=== PATIENT | female | born 1945 | race Caucasian/White ===

== ENCOUNTER 2022-04-08 06:36 | Inpatient (IN) | payer MEDICARE, BC ==
[~2022-04-08] VITALS: Ht 165.1 cm; Wt 80.0 kg
[2022-04-08 08:45] LABS: HEMATOCRIT 34.8 % (35.0-45.0); MONOCYTES # (AUTO) 0.5 X10'3 (0-0.9); WHITE BLOOD COUNT 5.9 X10'3 (4.5-11.0)
[2022-04-08 08:46] LABS: BASOPHILS # (AUTO) 0.1 X10'3 (0-0.2); BASOPHILS % (AUTO) 0.9 % (0-1); EOSINOPHILS # (AUTO) 0.1 X10'3 (0-0.9); EOSINOPHILS % (AUTO) 0.9 % (0-6); HEMOGLOBIN 12.4 g/dl (12.0-16.0); LYMPHOCYTES # (AUTO) 0.5 X10'3 (1.1-4.8); LYMPHOCYTES % (AUTO) 9.1 % (21-51); MEAN CORPUSCULAR HEMOGLOBIN 34.8 PG (27.0-31.0); MEAN CORPUSCULAR HGB CONC 35.5 g/dL (33.0-36.5); MEAN PLATELET VOLUME 10.5 FL (7.4-10.4); MONOCYTES % (AUTO) 8.8 % (2-12); NEUTROPHILS # (AUTO) 4.7 X10'3 (1.8-7.7); NEUTROPHILS % (AUTO) 80.3 % (42-75); PLATELET COUNT 174 X10'3 (140-440); RED BLOOD COUNT 3.55 X10'6 (4.20-5.60); RED CELL DISTRIBUTION WIDTH 17.3 % (11.5-14.5)
--- NOTE | 2022-04-08 08:53 | NUR ---
PATIENT UP TO BATHROOM AT THIS TIME TO PROVIDE UA SAMPLE. PATIENT STATES SHE FEELS "WOBBLY", MINIMAL ASSISTANCE NEEDED TO BATHROOM.
[2022-04-08 08:58] LABS: ALANINE AMINOTRANSFERASE 153 U/L (12-78); ALBUMIN 2.8 G/DL (3.4-5.0); ALKALINE PHOSPHATASE 352 IU/L (46-116); ANION GAP 13 (8-16); BILIRUBIN,TOTAL 18.5 MG/DL (0.1-1.0); BLOOD UREA NITROGEN 21 MG/DL (7-18); CALCIUM 8.9 MG/DL (8.5-10.1); CHLORIDE 108 MMOL/L (99-107); LIPASE 326 U/L (73-393); SODIUM 142 MMOL/L (135-145); TOTAL CARBON DIOXIDE 21.3 MMOL/L (24-32)
[2022-04-08 09:03] LABS: ALBUMIN/GLOBULIN RATIO 0.8 (1.1-1.5); ASPARTATE AMINO TRANSFERASE 98 U/L (10-37); BUN/CREATININE RATIO 21.6 (6.6-38.0); CREATININE 0.97 MG/DL (0.40-0.90); GLUCOSE 104 MG/DL (70-104); POTASSIUM 3.3 MMOL/L (3.5-5.1); TOTAL PROTEIN 6.5 G/DL (6.4-8.2); eGFR 56 ML/MIN
[2022-04-08 09:05] LABS: ETHANOL < 0.010 GM/DL (0.0-0.010)
[2022-04-08 09:18] LABS: COLOR,URINE BROWN (Yellow)
[2022-04-08 09:19] LABS: CLARITY,URINE SLIGHTLY CLOUDY (Clear); UA COLLECTION TYPE CLN CATCH MIDSTREAM
[2022-04-08 09:21] LABS: RBC,URINE 0-2 /HPF (0-2); WBC,URINE 0-4 /HPF (0-4)
[2022-04-08 09:23] LABS: BACTERIA,URINE FEW /HPF (Neg); CAL OXALATE CRYSTALS FEW /HPF (NEGATIVE); FINE GRANULAR CAST 0-3 /LPF (NEGATIVE); HYALINE CASTS 0-3 /LPF (NEGATIVE); MUCUS STRANDS FEW /LPF (Neg); RENAL CELLS, URINE FEW /HPF; SQUAMOUS EPITHELIAL CELL,UR FEW /LPF (FEW)
[2022-04-08 09:26] LABS: LARGE PLATELETS FEW; PLATELET ESTIMATE NORMAL; POLYCHROMASIA 1+
[2022-04-08 09:27] LABS: ANISOCYTOSIS 1+; TARGET CELLS 2+
[2022-04-08] MEDS ORDERED: acetaminophen 325mg tablet PO PRN ×2 (10:20)
[2022-04-08] MEDS ORDERED: mag hydrox/Alum hydrox/simeth 30ml oral suspension PO PRN (10:20)
[2022-04-08] MEDS ORDERED: morphine 2 MG/ML inj. syringe IV PRN (10:20)
[2022-04-08] MEDS ORDERED: magnesium 2GM in 50ml NS 50 ML IV PRN (10:20)
[2022-04-08] MEDS ORDERED: POTASSIUM BICARB 20meq eff tab 20 MEQ TABLET.EFF PO PRN ×2 (10:20)
[2022-04-08] MEDS ORDERED: potassium CL 10mEq/100ml bag 100 ML IV PRN (10:20)
[2022-04-08] MEDS ORDERED: magnesium 4gm in 100ml NS 100 ML IV PRN (10:20)
[2022-04-08] MEDS ORDERED: magnesium Cl slow-release 64mg tablet PO PRN (10:20)
[2022-04-08] MEDS ORDERED: ondansetron/PF 4mg/2ml inj IV PRN (10:20)
[2022-04-08] MEDS: normal saline 1000ml 1,000 ML IV SCH ×3 (11:29→22:57)
[2022-04-08] MEDS ORDERED: DILT-115 PO (11:52)
[2022-04-08] MEDS ORDERED: APIX5TAB3 PO (11:52)
[2022-04-08] MEDS ORDERED: OMEP20CA16 PO (11:52)
[2022-04-08] MEDS ORDERED: AMLO2.5T5 PO (11:52)
[2022-04-08] MEDS ORDERED: iohexol 300mg/ml 100ml inj. ONE (12:08)
--- NOTE | 2022-04-08 14:19 | NUR ---
Call to dr perez at this time to inform her HR Afib HR 130-150's, orders received.
[2022-04-08] MEDS ORDERED: metoprolol tartrate 50mg tablet PO ONE (14:20)
[2022-04-08] MEDS ORDERED: metoprolol tartrate 12.5mg (1/2 tablet) PO ONE (14:30)
[2022-04-08 18:00] VITALS: BP 130/85
--- NOTE | 2022-04-08 18:47 | NUR ---
Pt arrived to unit at change of shift, admission tasks to be endorsed to material handler 1st shift. Saw pt and addressed immediate needs. Patient report given, questions answered & plan of care reviewed with RASHAD Jacobson.
--- NOTE | 2022-04-08 19:11 | NUR ---
Patient in room U 3024. I have received report from RASHAD HANNA and had the opportunity to ask questions and assume patient care. Addendum: 04/08/22 at 1912 by Indira Mcdonald RN Amended: Links added.
[2022-04-08] MEDS: K and/or MAG REPLACEMENT MC SCH (19:58)
[2022-04-08] MEDS ORDERED: heparin, porcine 5000 units/ml vial SQ SCH (20:00)
[2022-04-08 22:00] VITALS: BP 105/64
[2022-04-09] VITALS (20 sets, daily range): BP systolic 113–141; BP diastolic 60–96
--- NOTE | 2022-04-09 03:22 | NUR ---
RESTING EYES CLOSED WITHOUT CHANGES.
--- NOTE | 2022-04-09 06:30 | NUR ---
Problems reprioritized. Patient report given, questions answered & plan of care reviewed with RASHAD POMPA. Addendum: 04/09/22 at 0631 by Indira Mcdonald RN Amended: Links added.
--- NOTE | 2022-04-09 06:38 | NUR ---
Patient in room PCU 3024. I have received report from Indira SOLORZANO and had the opportunity to ask questions and assume patient care.
[2022-04-09 06:48] LABS: HEMATOCRIT 34.5 % (35.0-45.0); HEMOGLOBIN 11.9 g/dl (12.0-16.0); MEAN CORPUSCULAR HEMOGLOBIN 33.9 PG (27.0-31.0); MEAN CORPUSCULAR HGB CONC 34.4 g/dL (33.0-36.5); MEAN CORPUSCULAR VOLUME 98.6 FL (78-98); MEAN PLATELET VOLUME 11.3 FL (7.4-10.4); PLATELET COUNT 149 X10'3 (140-440); RED CELL DISTRIBUTION WIDTH 17.6 % (11.5-14.5); WHITE BLOOD COUNT 5.2 X10'3 (4.5-11.0)
[2022-04-09 07:05] LABS: ALANINE AMINOTRANSFERASE 124 U/L (12-78); ALKALINE PHOSPHATASE 311 IU/L (46-116); ANION GAP 12 (8-16); ASPARTATE AMINO TRANSFERASE 88 U/L (10-37); BILIRUBIN,TOTAL 16.7 MG/DL (0.1-1.0); CHLORIDE 108 MMOL/L (99-107); POTASSIUM 3.8 MMOL/L (3.5-5.1); SODIUM 142 MMOL/L (135-145); TOTAL PROTEIN 5.7 G/DL (6.4-8.2)
[2022-04-09 07:23] LABS: ALBUMIN 2.4 G/DL (3.4-5.0); ALBUMIN/GLOBULIN RATIO 0.7 (1.1-1.5); BLOOD UREA NITROGEN 14 MG/DL (7-18); CALCIUM 8.3 MG/DL (8.5-10.1)
[2022-04-09 07:38] LABS: BUN/CREATININE RATIO 19.7 (6.6-38.0); CREATININE 0.71 MG/DL (0.40-0.90); GLUCOSE 70 MG/DL (70-104); eGFR 80 ML/MIN
--- NOTE | 2022-04-09 07:58 | NUR ---
Pt to GI lab
[2022-04-09] MEDS: K and/or MAG REPLACEMENT MC SCH ×2 (08:00→20:00)
[2022-04-09] MEDS ORDERED: iohexol 300mg/ml 100ml inj. ONE (08:11)
[2022-04-09] MEDS ORDERED: LIDOcaine Viscous 15ml cup ONE (08:12)
[2022-04-09] MEDS ORDERED: glucagon, human recombinant 1mg kit ONE (08:12)
[2022-04-09] MEDS ORDERED: MIDAZolam 1 MG/ML 5ML VIAL ONE (08:12)
[2022-04-09] MEDS ORDERED: fentaNYL/PF 50MCG/1 ML 2ML syringe ONE (08:12)
[2022-04-09] MEDS ORDERED: diphenhydrAMINE 50 mg/ml inj ONE (08:13)
[2022-04-09 08:40] LABS: TOTAL CELLS COUNTED 100
[2022-04-09 08:41] LABS: ANISOCYTOSIS 1+; PLATELET ESTIMATE NORMAL; POLYCHROMASIA FEW; TARGET CELLS 2+
[2022-04-09] MEDS ORDERED: levoFLOXACIN-Levaquin 500mg/D5 100 ML IV ONE (08:42)
[2022-04-09] MEDS ORDERED: ringers solution, lacted 1,000 ML IV ONE (10:50)
[2022-04-09] MEDS: ringers solution, lacted 1,000 ML IV SCH ×2 (10:50→20:50)
[2022-04-09] MEDS: normal saline 1000ml 1,000 ML IV SCH ×2 (13:30→23:15)
--- NOTE | 2022-04-09 16:15 | NUR ---
Page to Dr Park PAGER ID: [phone] MESSAGE: Jaja Ranjit [id number] re Petra [id number] pt HR sustaining between 130's-150's in A fib, pt takes 180mg Diltiazem ER daily at home, med rec has not been addressed yet and she has not received daily dose. Please call with orders, thank you
[2022-04-09] MEDS: diltiazem CD 180mg cap (once-daily) PO SCH (17:08)
--- NOTE | 2022-04-09 18:41 | NUR ---
Patient in room U 3024. I have received report from RASHAD POMPA and had the opportunity to ask questions and assume patient care. Addendum: 04/09/22 at 1842 by Indira Mcdonald RN Amended: Links added.
--- NOTE | 2022-04-09 18:43 | NUR ---
Problems reprioritized. Patient report given, questions answered & plan of care reviewed with Indira SOLORZANO.
--- NOTE | 2022-04-09 23:10 | NUR ---
COMPLAINT ABD DISCOMFORT 10/10 MEDICATED WITH TYLENOL PER REQUEST FOR THIS. NEW IV BAG FLUIDS HUNG. REPOSITIONED SELF ON HER SIDE. A/O PLEASANT.
[2022-04-10 06:00] VITALS: BP 121/74
--- NOTE | 2022-04-10 06:33 | NUR ---
Problems reprioritized. Patient report given, questions answered & plan of care reviewed with RASHAD QUINTANILLA. Addendum: 04/10/22 at 0634 by Indira Mcdonald RN Amended: Links added.
--- NOTE | 2022-04-10 06:45 | NUR ---
Patient in room PCU 3024B. I have received report from RASHAD MONTENEGRO and had the opportunity to ask questions and assume patient care.
[2022-04-10 07:02] LABS: HEMOGLOBIN 11.9 g/dl (12.0-16.0); MEAN PLATELET VOLUME 10.8 FL (7.4-10.4); WHITE BLOOD COUNT 6.2 X10'3 (4.5-11.0)
[2022-04-10 07:03] LABS: PLATELET COUNT 187 X10'3 (140-440); RED BLOOD COUNT 3.42 X10'6 (4.20-5.60); RED CELL DISTRIBUTION WIDTH 16.8 % (11.5-14.5)
[2022-04-10 07:34] LABS: ALANINE AMINOTRANSFERASE 121 U/L (12-78); ALBUMIN 2.2 G/DL (3.4-5.0); ALKALINE PHOSPHATASE 325 IU/L (46-116); ANION GAP 12 (8-16); BILIRUBIN,TOTAL 17.8 MG/DL (0.1-1.0); BLOOD UREA NITROGEN 11 MG/DL (7-18); CALCIUM 8.3 MG/DL (8.5-10.1); CHLORIDE 107 MMOL/L (99-107); SODIUM 141 MMOL/L (135-145); TOTAL CARBON DIOXIDE 21.6 MMOL/L (24-32)
[2022-04-10 07:35] LABS: ALBUMIN/GLOBULIN RATIO 0.7 (1.1-1.5); ASPARTATE AMINO TRANSFERASE 101 U/L (10-37); BUN/CREATININE RATIO 15.9 (6.6-38.0); CREATININE 0.69 MG/DL (0.40-0.90); GLUCOSE 95 MG/DL (70-104); POTASSIUM 3.3 MMOL/L (3.5-5.1); TOTAL PROTEIN 5.5 G/DL (6.4-8.2); eGFR 83 ML/MIN
[2022-04-10 08:35] LABS: HEMATOCRIT 34.4 % (35.0-45.0)
[2022-04-10 08:36] LABS: MEAN CORPUSCULAR HEMOGLOBIN 33.7 PG (27.0-31.0); MEAN CORPUSCULAR HGB CONC 34.6 g/dL (33.0-36.5); MEAN CORPUSCULAR VOLUME 97.4 FL (78-98)
[2022-04-10 08:41] LABS: ANISOCYTOSIS 1+; PLATELET ESTIMATE NORMAL; TARGET CELLS 1+; TOTAL CELLS COUNTED 100
[2022-04-10] MEDS: diltiazem CD 180mg cap (once-daily) PO SCH (10:24)
[2022-04-10 10:30] VITALS: BP_SYST 118; BP_SYST 125; BP_SYST 129; BP_DIAS 78; BP_DIAS 81; BP_DIAS 83
[2022-04-10] MEDS: K and/or MAG REPLACEMENT MC SCH (10:34)
[2022-04-10] MEDS: ringers solution, lacted 1,000 ML IV SCH (10:40)
--- NOTE | 2022-04-10 13:31 | NUR ---
PATIENT STABLE AND APPROPRIATE FOR DISCHARGE, IV REMOVED, TELE REMOVED, EDUCATION GIVEN, ALL BELONGINGS SENT WITH PATIENT, PATIENT TAKEN TO LOBBY BY WHEELCHAIR TO AN AWAITING CAR WHERE SON WILL TAKE PATIENT HOME
== END 2022-04-10 13:31 | disposition home or self-care (01) | DRG 435 ==
LOC: ER 06:36 → ED HOLD 10:21 → PCU 3S 18:24
PROVIDERS: ADMIT Internal Medicine; ATTEND Internal Medicine
PROC: B4201ZZ Computerized Tomography (CT Scan) of Abdominal Aorta using Low Osmolar Contrast (ICD-10-PCS; 2022-04-08)
PROC: 0F798DZ Dilation of Common Bile Duct with Intraluminal Device, Via Natural or Artificial Opening Endoscopic (ICD-10-PCS; principal; 2022-04-09)
DX: C24.0 Malignant neoplasm of extrahepatic bile duct (principal); K83.1 Obstruction of bile duct; K57.10 Diverticulosis of small intestine without perforation or abscess without bleeding; E87.6 Hypokalemia; I10 Essential (primary) hypertension; K21.9 Gastro-esophageal reflux disease without esophagitis; R60.0 Localized edema; K44.9 Diaphragmatic hernia without obstruction or gangrene; K86.89 Other specified diseases of pancreas; I48.0 Paroxysmal atrial fibrillation; K82.8 Other specified diseases of gallbladder
CPT/HCPCS: 36415; 43261; 43262; 43274; 71045; 74177; 76700; 80053; 80320; 81001; 82140; 83605; 83690; 85007; 85008; 85025; 85610; 87040; 87081; 88305; 88342; 88360; 93005; 99152; 99153; 99285; A4620; A6258; C1769; C2625; G0378; J1200; J1610; J1956; J2250; J3010; J3490; J7030; J7120; Q9967